=== PATIENT | male | born 1970 | race African-American/Black ===

== ENCOUNTER 2024-12-30 15:26 | Emergency (ER) | payer OTHER ==
[~2024-12-30] VITALS: Ht 172.7 cm; Wt 96.0 kg
[~2024-12-30 15:26] MED LIST: AMOX1TAB15 MT; ASPI-1406 PO; FOLI0.8T53 MT; HYDR50TA39 PO; LIP40 PO; NIFE-33 MT; SEVE800T8 PO
[2024-12-30 15:47] VITALS: O2SAT 100
[2024-12-30] MEDS: IBUPROFEN 400MG TABLET PO ONE (17:17)
[2024-12-30] MEDS ORDERED: AM250 MT (17:29)
[2024-12-30] MEDS: ACETAMINOPHEN 325MG TABLET PO ONE ×2 (17:35→22:05)
[2024-12-30 18:15] LABS: HEMATOCRIT. 32.5 % (42.0-52.0); HEMOGLOBIN. 10.5 g/dL (14.0-18.0); MEAN CORPUSCULAR HEMOGLOBIN 31.6 pg (28.0-32.0); MEAN CORPUSCULAR HGB CONC 32.1 g/dL (31.0-37.0); MEAN CORPUSCULAR VOLUME 98.2 fL (80.0-94.0); MEAN PLATELET VOLUME 7.9 fl (7.4-10.4); PLATELET 246 x1000/uL (130-400); RED BLOOD CELL COUNT 3.31 mill/uL (4.7-6.1); RED CELL DISTRIBUTION WIDTH 16.5 % (11.6-14.6); WHITE BLOOD COUNT 7.7 x1000/uL (4.5-11.0)
[2024-12-30 18:16] LABS: DIFFERENTIAL COMMENT 1
[2024-12-30 18:22] LABS: CHLORIDE 94 mEq/L (98-107); POTASSIUM 4.5 mEq/L (3.5-5.1); SODIUM 133 mEq/L (136-145)
[2024-12-30 18:23] LABS: CALCIUM 9.1 mg/dL (8.7-10.4); CARBON DIOXIDE 27 mEq/L (21-32)
[2024-12-30 18:28] LABS: GLUCOSE 174 mg/dL (70-105); UREA NITROGEN BLOOD 30 mg/dL (9-23)
[2024-12-30 18:30] LABS: ALANINE AMINOTRANSFERASE 7 IU/L (10-49); ALBUMIN 4.2 g/dL (3.2-4.8); ASPARTATE AMINOTRANSFERASE 15 IU/L (<34); BILIRUBIN DIRECT 0.2 mg/dL (<=3.0); BILIRUBIN TOTAL 0.6 mg/dL (0.1-1.0); PROTEIN TOTAL 7.5 g/dL (6.0-8.3)
[2024-12-30 18:38] LABS: INR 1.8; PROTHROMBIN TIME 18.3 sec (9.6-11.0)
[2024-12-30 18:45] LABS: CREATININE 8.3 mg/dL (0.6-1.3)
[2024-12-30] MEDS ORDERED: AM250 PO (19:31)
[2024-12-30 20:25] LABS: PLATELET ESTIMATE NORMAL
[2024-12-30 21:18] VITALS: BP 147/34; PULSE 99; RESP 16; TEMP 37.3; O2SAT 98
[2024-12-30 22:05] VITALS: TEMP 99.1
== END 2024-12-30 22:06 | disposition home or self-care (01) ==
LOC: ER 15:26
DX: B34.9 Viral infection, unspecified (principal); E11.9 Type 2 diabetes mellitus without complications; R06.02 Shortness of breath; Z79.82 Long term (current) use of aspirin; Z99.2 Dependence on renal dialysis; Z86.73 Personal history of transient ischemic attack (TIA), and cerebral infarction without residual deficits; Z79.899 Other long term (current) drug therapy
CPT/HCPCS: 36415; 71046; 80048; 80076; 83880; 85025; 99284

== ENCOUNTER 2025-01-05 22:30 | Emergency (ER) | payer MEDICAID ==
[~2025-01-05] VITALS: Ht 172.7 cm; Wt 96.0 kg
[~2025-01-05 22:30] MED LIST changes: +AM250 PO
[2025-01-05 23:04] VITALS: O2SAT 100
[2025-01-06] MEDS ORDERED: AZIT250T12 MT (02:48)
[2025-01-06] MEDS ORDERED: BENZ200C52 MT (02:48)
[2025-01-06] MEDS: ACETAMINOPHEN 325MG TABLET PO ONE (03:06)
[2025-01-06 04:17] VITALS: BP 181/58; PULSE 85; RESP 18; TEMP 36.8; O2SAT 100
== END 2025-01-06 04:35 | disposition home or self-care (01) ==
LOC: ER 22:30
DX: H66.91 Otitis media, unspecified, right ear (principal); E11.9 Type 2 diabetes mellitus without complications; I25.2 Old myocardial infarction; Z79.82 Long term (current) use of aspirin; Z99.2 Dependence on renal dialysis; Z86.73 Personal history of transient ischemic attack (TIA), and cerebral infarction without residual deficits; Z79.899 Other long term (current) drug therapy
CPT/HCPCS: 99283; Z7610